=== PATIENT | male | born 1975 | race Caucasian/White ===

== ENCOUNTER 2021-05-18 19:33 | Emergency (ER) | payer BC, SELFPAY ==
[2021-05-18 19:45] VITALS: BP 142/84; PULSE 70; RESP 18; TEMP 36.4; O2SAT 99
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
[2021-05-18] MEDS: Acetaminophen 500 MG TAB 1000 MG PO (20:13)
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
--- NOTE | 2021-05-18 21:23 | NUR.NOTE ---
Large sling applied to right shoulder/clavicle radial pulse intact no complaints of further painNursing Note:
[2021-05-18 21:35] VITALS: BP 122/65; PULSE 89; RESP 16; O2SAT 98
== END 2021-05-18 21:45 | disposition home or self-care (01) ==
PROVIDERS: Emergency Provider Emergency Medicine
DX: S42.021A Displaced fracture of shaft of right clavicle, initial encounter for closed fracture (principal); R07.9 Chest pain, unspecified; V29.9XXA Motorcycle rider (driver) (passenger) injured in unspecified traffic accident, initial encounter
CPT/HCPCS: 99284; 71046; 73030; 99283